=== PATIENT | male | born 1950 | race Caucasian/White ===

== ENCOUNTER → 2018-11-01 | Outpatient (CLI) | payer OTHER ==
[~2018-11-01] MED LIST: ASPI-612 PO; CHOL10003 PO; CILO100T PO; CRESTOR5 MG PO; DULO30CA2 PO; DULO60CA6 PO; FINA5TAB4 PO; FLUT16SP21 NS; INSU100I17 SQ; INSU100I30 SQ; LIPA1CAP4 PO; LISI-334 PO; MIRT30TA3 PO; RANI-376 PO; TRAM50TA PO; lidocaine 5% oint
[2018-11-01 08:40] VITALS: BP 153/94
== END | disposition home or self-care (01) ==
LOC: SURG 08:15
PROVIDERS: ATTEND Anesthesiology
DX: M47.816 Spondylosis without myelopathy or radiculopathy, lumbar region (principal); M46.1 Sacroiliitis, not elsewhere classified; Z98.1 Arthrodesis status
CPT/HCPCS: 99214